=== PATIENT | female | born 1945 | race Caucasian/White ===

== ENCOUNTER 2017-01-05 19:30 | Emergency (ER) | payer MEDICARE, BC ==
[2017-01-05 21:12] VITALS: BP 133/71
--- NOTE | 2017-01-06 01:44 | ER ---
DATE SEEN: 01/05/2017 ADDITIONAL HISTORY: She had been seen at [facility] and noted to have a mild form of obstructive sleep apnea. She uses CPAP and facilities operations technician noted that that is the reason why she lost 20 pounds after used CPAP. Previous 100 pound weight loss with Sarkis-en-Y procedure (gastric bypass) for also complications of duodenal ulcer and esophagitis. Status post appendectomy. Status post bilateral eyelid surgery with excessive redundant superior lid folds causing obstruction of her vision. Three back surgeries. Cholecystectomy. T and A. Hernia surgery in addition to the left breast biopsy. /[id number] AMANDEEP/LEOLA
--- NOTE | 2017-01-08 16:46 | ER ---
DATE SEEN: 01/05/2017 TIME SEEN: 1955 hours. HISTORY OF PRESENT ILLNESS: This is a 71-year-old woman with known depression, atypical left breast hyperplasia, glaucoma, history of fibromyalgia, and chronic pain, was at a social event in [place] this evening, and noted 40 minutes ago a red-brown streak float across her left eye. At this point, she experienced also floaters. These symptoms have progressively gotten better. She did not have a curtain effect. She denies increased pain in her eye or facial pain. She sees an rail switch operator, Dr. Pereira, in [facility]. Presently, she denies a vision defect except for notes occasional floaters. The vision is not black. MEDICATIONS: 1. Cymbalta 60 mg b.i.d. 2. An estrogen jolanta for her atypical hyperplasia in breast. 3. Lumigan eye drops at bedtime for her glaucoma. REVIEW OF SYSTEMS: Negative except as noted above. PHYSICAL EXAMINATION: VITAL SIGNS: Blood pressure 133/71, heart rate 84, respirations 18, 99% saturation on room air, temperature is 98.3. GENERAL: Pleasant woman is accompanied by her . She is in no distress presently. Mildly overweight and has good eye contact. HEENT: Eyes to confrontation are normal. She has noticed a slight blurriness to the left lateral field. She has good definition and can read well with the right eye and also can read with the left eye, (very small print). As for the smallest of the print on a Delyx box, she is not able to read. EOMs are normal. Examination of the eyes, pupils are equal, round, and react reactive to light. She has a mild cataract, left greater than right. The retina is normal appearance. I do not see an unusual shadow or dark area or hemorrhage. However, it is difficult to see the lateral portion of her eye. The medial portion does not appear to have an abnormality. Optic cups and disks are normal. Mild arteriole narrowing. NECK: No bruits. Pharynx without abnormality. Gag in place. Uvula and tongue are midline. No thyromegaly or cervical adenopathy, masses or bruit. LUNGS: Clear to auscultation without rales, rhonchi, or wheezes. HEART: S1, S2. No irregularity of rhythm. She has a soft murmur, which radiates to the anterior left chest at midclavicular line. Does not radiate to the carotids. ABDOMEN: Nontender. No guarding, no abdominal discomfort. EXTREMITIES: Without edema. Deep tendon reflexes normal of the upper and lower extremities. No pronator drifts, no paresis, no dysmetria. She has a fine tremor that increases with tension. She denies tremor decreasing with alcohol intake. She does not drink alcohol. ASSESSMENT: 1. Possible retinal detachment, not visualized on direct ophthalmoscope examination. 2. Early cataracts. 3. Slight blurry vision, left eye. 4. Overweight. 5. Fibromyalgia. 6. Depression. 7. Essential tremor. 8. Mitral heart murmur. PLAN: I have spoken to Dr. Chau, who will see her at 8 a.m. tomorrow at the [facility], [address] [place] [address]. The patient's face sheet has been faxed to the [facility]. /[id number] AMANDEEP/LEOLA
== END 2017-01-05 20:45 | disposition home or self-care (01) ==
LOC: FB.ED 19:30
DX: F32.9 Major depressive disorder, single episode, unspecified (principal); H26.9 Unspecified cataract; H53.8 Other visual disturbances; R25.1 Tremor, unspecified; M79.7 Fibromyalgia; I34.0 Nonrheumatic mitral (valve) insufficiency; E66.3 Overweight; Z68.30 Body mass index [BMI] 30.0-30.9, adult; Z90.89 Acquired absence of other organs; Z90.49 Acquired absence of other specified parts of digestive tract
CPT/HCPCS: 99283; 99284